=== PATIENT | male | born 1965 | race Caucasian/White ===

== ENCOUNTER 2018-03-30 10:36 | Observation (INO) ==
[2018-03-30] MEDS ORDERED: ACETAMINOPHEN 325 MG TABLET PO PRN (11:00)
[2018-03-30] MEDS ORDERED: PROMETHAZINE 25 MG/1 ML VIAL IM PRN (11:00)
[2018-03-30] MEDS: SODIUM CHLORIDE 0.9% 1,000 ML IV SCH ×2 (12:37→20:37)
[2018-03-30] MEDS: ONDANSETRON 4 MG/2 ML VIAL IV PRN ×2 (12:37→17:08)
[2018-03-30 13:01] LABS: Basophils % 0.1 % (0.0-0.8); Eosinophils # 0.1 10*3/uL (0.0-0.87); Eosinophils % 1.1 % (0.00-10.9); Hematocrit 45.3 VOL% (42.0-52.0); Hemoglobin 15.1 GM/DL (14.0-18.0); Immature Granulocytes % 0.3 %; Immature Granulocytes Absolute 0.03 #; Lymphocytes # 1.2 10*3/uL (1.4-4.0); Lymphocytes % 13.9 % (21.2-54.2); Mean Corpuscular HGB Conc 33.3 GM/DL (32-36); Mean Corpuscular Hemoglobin 31 PG (27-34); Mean Corpuscular Volume 91.9 FL (87-102); Mean Platelet Volume 11.5 FL (9.6-12.0); Monocytes # 0.9 10*3/uL (0.11-0.8); Monocytes % 10.4 % (1.7-12.7); Neutrophils # 6.6 10*3/uL (1.4-7.4); Neutrophils % 74.2 % (38.7-73.9); Platelet Count 176 T/CUMM (130-400); Red Blood Count 4.93 MC/CUMM (3.8-5.5)
[2018-03-30 13:40] LABS: Osmolality,Calculated 281.1 MOS/KG (273-304); Potassium 3.9 MMOL/L (3.5-5.1)
[2018-03-30 15:11] LABS: Apearance,Urine CLEAR (Clear); Bilirubin,Urine Negative (Negative); Blood, Urine Moderate mg/dL (Negative); Glucose,Urine (UA) Negative (Negative); Ketones,Urine 5 mg/dL (Negative); Mucus,Urine Occasional /LPF (Occasional); Nitrite,Urine Negative (Negative); Protein,Urine 30 MG/DL; RBC,Urine 20 /HPF (0-4); Urine Color Yellow (Yellow); Urine Specific Gravity 1.017 (1.001-1.035); Urine Urobilinogen < 2.0 EU/DL (0.2-1.0); WBC,Urine 15 /HPF (0-6)
[2018-03-30] MEDS: MORPHINE 10 MG/1 ML VIAL IV PRN (17:09)
[2018-03-30] MEDS: TAMSULOSIN 0.4 MG CAPSULE PO SCH (20:05)
[2018-03-31] MEDS: ONDANSETRON 4 MG/2 ML VIAL IV PRN (01:28)
[2018-03-31] MEDS: MORPHINE 10 MG/1 ML VIAL IV PRN ×6 (01:28→13:20)
[2018-03-31] MEDS ORDERED: SCOPOLAMINE 1.5 MG PATCH TRANSDERM ONE (05:30)
[2018-03-31] MEDS ORDERED: FAMOTIDINE 20 MG TABLET PO ONE (05:30)
[2018-03-31] MEDS ORDERED: DIAZEPAM 5 MG TABLET PO ONE (05:30)
[2018-03-31] MEDS: TAMSULOSIN 0.4 MG CAPSULE PO SCH ×2 (08:55→20:38)
[2018-03-31] MEDS ORDERED: cefTRIAXone 1,000 MG in SYRINGE 1 EACH IV ONE (09:00)
[2018-03-31] MEDS: SODIUM CHLORIDE 0.9% 1,000 ML IV SCH ×3 (09:15→22:55)
[2018-03-31] MEDS ORDERED: LIDOCAINE 2% TOP JELLY 20 ML VIAL INTRAURETH ONE (12:17)
[2018-03-31] MEDS ORDERED: PROPOFOL 200 MG/20 ML VIAL IV ONE (12:35)
[2018-03-31] MEDS ORDERED: SEVOFLURANE 1 UNIT/15 MINUTE INH ONE (12:35)
[2018-03-31] MEDS ORDERED: LIDOCAINE 1% 5 ML VIAL ONE (12:35)
[2018-03-31] MEDS ORDERED: fentaNYL 100 MCG/2 ML VIAL ONE (12:36)
[2018-03-31] MEDS ORDERED: GLYCOPYRROLATE 0.4 MG/2 ML VIAL ONE (12:36)
[2018-03-31] MEDS ORDERED: NEOSTIGMINE 10 MG/10 ML VIAL ONE (12:36)
[2018-03-31] MEDS ORDERED: ONDANSETRON 4 MG/2 ML VIAL ONE ×2 (12:36→12:53)
[2018-03-31] MEDS ORDERED: MIDAZOLAM 2 MG/2 ML VIAL ONE (12:36)
[2018-03-31] MEDS ORDERED: ROCURONIUM 100 MG/10 ML VIAL IV ONE (12:36)
[2018-03-31] MEDS ORDERED: ONDANSETRON 4 MG/2 ML VIAL IV PRN (12:52)
[2018-03-31] MEDS ORDERED: MORPHINE 10 MG/1 ML VIAL ONE (12:53)
[2018-03-31] MEDS ORDERED: SODIUM CHLORIDE 0.9% 1,000 ML IV ONE (13:26)
[2018-03-31] MEDS ORDERED: MEPERIDINE 25 MG/1 ML VIAL IV PRN (18:24)
[2018-03-31] MEDS: OXYBUTYNIN XL 5 MG TABLET PO SCH (18:37)
[2018-04-01] MEDS: SODIUM CHLORIDE 0.9% 1,000 ML IV SCH (03:40)
[2018-04-01] MEDS: TAMSULOSIN 0.4 MG CAPSULE PO SCH (09:07)
[2018-04-01] MEDS: OXYBUTYNIN XL 5 MG TABLET PO SCH (09:07)
[2018-04-01 10:31] VITALS: BP 122/83
== END 2018-04-01 11:12 | disposition home or self-care (01) ==
LOC: N.5E
PROVIDERS: ADMIT Surgery; ATTEND Surgery